=== PATIENT | male | born 1940 | race African-American/Black ===

== ENCOUNTER 2016-11-05 08:57 | Emergency (ER) | payer MEDICARE, OTHER ==
[~2016-11-05 08:57] MED LIST: *UNABLE1; ACCUNEB INH; ACET500CAP PO; ALBUTEROL5 INH; ATROVENT HFA17 MCG INH; BROVANA15 MCG INH; CARD120 PO; CARDCD120 PO; CARDIZEM LA180 MG PO; CARTIA XT240 MG/24 PO; DILT-XR240 MG PO; DSS PO; DUONEB INH; IRON325 MG PO; KDUR10 PO; KDUR20 PO; KLOR-CON M2020 MEQ PO; L40 PO; LEVAQUIN5T; MAX25 PO; MEDROL8 MG PO; OCEAN NAS; OXYGEN NAS; P10 PO; PERFOROM INH; PRILO PO; PROVENTSOL INH; PULRESP.5 INH; PULRESP.5 PO; RYTHMOL150 MG PO; SPIRIVA INH; T100 PO; T200 PO; THEOPHYLLINE PO; VIBRATAB100 MG PO; XOPENEX1.25 MG/3 INH
[2016-11-05 09:18] LABS: ALLENS TEST Pos; BE (BASE EXCESS) 5.6 MEQ/L (0 +/- 2.5); CARBOXYHEMOGLOBIN 1.4 % (0-3); DEVICE NC; HCO3 (ACTUAL BICARBONATE) 31.7 MEQ/L (23-27); HEMOBLOGIN CONTENT 11.2 G/DL (14-18); INSTRUMENT SERIAL # 8087; METHEMOGLOBIN 0.3 % (0-3); O2 CONTENT 14.7 VOL% (18-24); PCO2 (CO2 TENSION) 54 MMHG (35-45); PO2 (O2 TENSION) 72 MMHG (79-93); SAMPLE Arterial; pH 7.39 (7.37-7.43)
[2016-11-05 09:23] LABS: BASOPHILS 1.4 %; BASOPHILS ABSOLUTE 0.07 10/3/uL (0.0-0.16); EOSINOPHILS 12.1 %; ER CBC TAT 0 Hrs 07 Mins; HEMATOCRIT 35.1 % (40.0-51.0); HEMOGLOBIN 10.7 g/dL (13.6-17.8); IMMATURE GRANULOCYTES 0.2 %; IMMATURE GRANULOCYTES ABSOLUTE 0.01 10/3/uL (0.0-0.11); LYMPHOCYTES 29.8 %; LYMPHOCYTES ABSOLUTE 1.47 10/3/uL (0.67-4.30); MEAN CORPUS HGB CONC 30.5 g/dL (32.0-36.0); MEAN CORPUSCULAR HEMOGLOB 21.3 pg (26.0-34.0); MEAN CORPUSCULAR VOLUME 69.8 fL (80-100); MEAN PLATELET VOLUME 10.3 fL (9.2-13.0); MONOCYTES ABSOLUTE 0.64 10/3/uL (0.21-1.20); NEUTROPHILS 43.5 %; NEUTROPHILS ABSOLUTE 2.15 10/3/uL (2.02-8.40); PLATELET COUNT 143 10/3/uL (150-400); RBC DISTRIBUTION WIDTH 16.6 % (12.0-16.0); RED CELL COUNT 5.03 10/6/uL (4.7-6.1); WHITE BLOOD CELLS 4.9 10/3/uL (4.5-10.5)
[2016-11-05 09:24] LABS: MANUAL DIFF NO %
[2016-11-05 09:38] LABS: A/G RATIO 0.9 (0.7-1.9); ALBUMIN 3.2 G/DL (3.5-5.0); ALKALINE PHOSPHATASE 71 U/L (45-117); CALCIUM, SERUM 8.6 MG/DL (8.5-10.4); CHLORIDE, SERUM 105 MMOL/L (96-112); CO2 (CARBON DIOXIDE) 33 MMOL/L (24-34); GFR AFRICAN AMERICAN 96 ML/MIN (>=60); GFR NON AFRICAN AMERICAN 83 ML/MIN (>=60); GLOBULIN 3.4 G/DL (2.5-4.1); GLUCOSE, SERUM 103 MG/DL (60-99); POTASSIUM, SERUM 3.6 MMOL/L (3.5-5.3); SGOT(AST) 15 U/L (5-40); SGPT(ALT) 13 U/L (5-65); SODIUM, SERUM 146 MMOL/L (135-148); TOTAL BILIRUBIN 0.4 MG/DL (0-1.2); TOTAL PROTEIN 6.6 G/DL (6.0-8.5)
[2016-11-05 09:43] LABS: BUN (BLOOD UREA NITROGEN) 11 MG/DL (6-23)
[2016-11-05 09:46] LABS: OVALOCYTES 1+ (3-10/OIF) (0-2/OIF); PLATELET ESTIMATE SLT DEC (ADEQUATE); TARGET CELLS OCC (1-2/OIF) (0-1/OIF)
== END 2016-11-05 10:09 | disposition home or self-care (01) ==
LOC: ER 08:57
PROVIDERS: Emergency Medicine
DX: J44.1 Chronic obstructive pulmonary disease with (acute) exacerbation (principal); I10 Essential (primary) hypertension; D64.9 Anemia, unspecified; Z87.891 Personal history of nicotine dependence; Z79.52 Long term (current) use of systemic steroids; Z79.899 Other long term (current) drug therapy
CPT/HCPCS: 36600; 71010; 80053; 82805; 85025; 87070; 87205; 93005; 94640; 99285; A9270-GY